=== PATIENT | female | born 1980 | race Two or more races ===

== ENCOUNTER 2025-05-20 08:02 | Emergency (ER) | payer OTHER ==
[~2025-05-20] VITALS: Ht 162.6 cm; Wt 68.5 kg
[2025-05-20] MEDS ORDERED: KETOROLAC TROMETHAMINE 60 MG VIAL IM ONE ×2 (09:00→09:08)
[2025-05-20] MEDS ORDERED: ORPHENADRINE CITRATE 30 MG/ML AMPUL IM ONE (09:00)
[2025-05-20] MEDS ORDERED: DEXAMETHASONE SODIUM PHOSPHATE 4 MG/ML VIAL IM ONE (09:00)
[2025-05-20] MEDS ORDERED: ORPHENADRINE CITRATE 30 MG/ML AMPUL ONE (09:07)
[2025-05-20] MEDS ORDERED: DEXAMETHASONE SODIUM PHOSPHATE 4 MG/ML VIAL ONE (09:08)
== END 2025-05-20 09:42 | disposition home or self-care (01) ==
LOC: ER 08:02
DX: S29.012A Strain of muscle and tendon of back wall of thorax, initial encounter (principal); S21.90XA Unspecified open wound of unspecified part of thorax, initial encounter; X58.XXXA Exposure to other specified factors, initial encounter; Y93.89 Activity, other specified; Y92.89 Other specified places as the place of occurrence of the external cause; Y99.9 Unspecified external cause status; M62.838 Other muscle spasm; Z91.013 Allergy to seafood